=== PATIENT | male | born 1950 | race Caucasian/White ===

== ENCOUNTER 2021-12-28 09:49 | Outpatient (CLI) | payer MEDICARE, BC ==
[2021-12-28 20:29] LABS: SARS-CoV-2 PCR by NAA Not Detected (NotDetected)
== END 2021-12-28 09:50 | disposition home or self-care (01) ==
LOC: CSHLAB 09:49
PROVIDERS: ATTEND Family Medicine
DX: Z20.822 Contact with and (suspected) exposure to COVID-19 (principal)
CPT/HCPCS: U0003; U0005

== ENCOUNTER 2021-12-29 08:37 | Outpatient (CLI) | payer MEDICARE, BC | END 2021-12-29 08:38 | disposition home or self-care (01) | LOC: CSHRAD 08:37 | PROVIDERS: ATTEND Otolaryngology Plastic Surgery within the Head & Neck | DX: R13.10 Dysphagia, unspecified (principal); R63.30 Feeding difficulties, unspecified; R93.3 Abnormal findings on diagnostic imaging of other parts of digestive tract | CPT/HCPCS: 74230 ==